=== PATIENT | male | born 1950 | race Caucasian/White ===

== ENCOUNTER 2023-03-23 07:42 | Outpatient (CLI) | payer MEDICARE, OTHER, SELFPAY | END 2023-03-23 07:43 | disposition home or self-care (01) | LOC: AMB 04-11 15:41 | PROVIDERS: Visit Provider Family Medicine | DX: R55 Syncope and collapse (principal); M54.2 Cervicalgia | CPT/HCPCS: A0425; A0429 ==

== ENCOUNTER 2023-03-23 08:15 | Emergency (ER) | payer MEDICARE, OTHER, SELFPAY ==
[2023-03-23] VITALS (13 sets, daily range): BP systolic 117–165; BP diastolic 93–104; PULSE 48–73; RESP 20; TEMP 35.9; O2SAT 92–97; BMI 45.1
--- NOTE | 2023-03-23 08:25 | ED_ITS ---
HPI - Fall General Time Seen by Provider: 08:25 Date Seen: 03/23/23 Chief Complaint: Fall/Minor Trauma Stated Complaint: Neck Pain Time Seen by Provider: 03/23/23 08:25 Source: patient and EMS Mode of arrival: EMS Limitations: no limitations History of Present Illness HPI Narrative: Patient is a 72 year old male brought in by [facility] after a fall at his girlfriend's house where he is staying. He is complaining of toe pain in his foot, neck pain which may be acute on chronic. 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 He is also noting some double vision. He complains of some pain into his right shoulder area. Feels like it is over the right shoulder blade. He was getting up to go to the bathroom this morning going down a hallway to use the bathroom he usually uses at his girlfriend's house. He started to feel dizzy, maybe a sense of lightheadedness and imbalance together but not spinning. He went down, no loss of consciousness. He was just at [facility] yesterday, diagnosed with right lower extremity cellulitis. He had been at a viewing or appreciation for the [employer] at a hotel in [place]. That had a complimentary drink and were going back in to the room, felt dizzy then but was maybe a bit different. He went down there. He was started on Cipro for his right lower extremity cellulitis. He is chronically anticoagulated on Coumadin for atrial fibrillation. He does not have a headache at this time, states he does have some pain above his right eye. Notes no motor weakness or incoordination in any of his extremities. No difficulty breathing, no chest pain or chest wall pain. No abdominal pain. He has not noted any fevers or chills. He has not been coughing or short of breath baseline. 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 He does note that he hit the back of his head last night with his fall. He did report a normal CT scan last night at [facility]. complaint: fall Onset (ago): minute(s) Fall from: standing Fall witnessed: no Place fall occurred: home Loss of consciousness: No Prolonged down time: no Symptoms prior to fall: lightheadedness and dizziness Related Data Home Medications Medication Instructions Recorded Confirmed atenolol 100 mg tablet 100 mg PO DAILY 03/23/23 03/23/23 chlorthalidone 25 mg tablet 25 mg PO DAILY 03/23/23 03/23/23 doxazosin 2 mg tablet 2 mg PO DAILY 03/23/23 03/23/23 lisinopril 40 mg tablet 40 mg PO DAILY 03/23/23 03/23/23 warfarin .ROUTE 03/23/23 Previous Rx's Medication Instructions Recorded cephalexin 500 mg tablet 500 mg PO QID 10 days #40 tabs 03/23/23 Allergies Allergy/AdvReac Type Severity Reaction Status Date / Time bee pollen Allergy Unknown Verified 03/23/23 08:33 zolpidem [From Ambien] Allergy Unknown Verified 03/23/23 08:33 Review of Systems Status of ROS: Reports: 10 or more systems reviewed and unremarkable except as noted in History and below PFSH PFS Social History Smoking Status: Never smoker How often do you have a drink containing alcohol: monthly or less How many standard drinks containing alcohol do you have on a typical day: 1 or 2 How often do you have six or more drinks on one occasion: Never AUDIT-C Alcohol total score: 1 Non-prescribed substance use: marijuana (any form) Non-prescribed substance use details: infrequent marijuana use Exam Const: Vital Signs, click to edit/add: Vital Signs - 24 hr 03/23/23 08:24 03/23/23 08:25 03/23/23 08:26 Temperature 96.7 F L Pulse Rate 67 73 Pulse Rate [Pulse Oximeter] 54 L Respiratory Rate 20 Blood Pressure 137/95 H Blood Pressure [Ri ght Upper Arm] 137/95 H Blood Pressure [or thostatic lying Le ft Arm] Blood Pressure [or thostatic sitting Left Arm] Blood Pressure [or thostatic standing Left Arm] Pulse Oximetry 96 97 94 Oxygen Delivery Me thod Room Air 03/23/23 08:30 03/23/23 08:59 03/23/23 09:00 Temperature Pulse Rate 65 68 61 Pulse Rate [Pulse Oximeter] Respiratory Rate Blood Pressure Blood Pressure [Ri ght Upper Arm] Blood Pressure [or thostatic lying Le ft Arm] Blood Pressure [or thostatic sitting Left Arm] Blood Pressure [or thostatic standing Left Arm] Pulse Oximetry 97 97 96 Oxygen Delivery Me thod 03/23/23 09:15 03/23/23 09:30 03/23/23 09:45 Temperature Pulse Rate 58 L 48 L 56 L Pulse Rate [Pulse Oximeter] Respiratory Rate Blood Pressure Blood Pressure [Ri ght Upper Arm] Blood Pressure [or thostatic lying Le ft Arm] Blood Pressure [or thostatic sitting Left Arm] Blood Pressure [or thostatic standing Left Arm] Pulse Oximetry 94 92 96 Oxygen Delivery Me thod 03/23/23 10:28 03/23/23 10:30 03/23/23 10:45 Temperature Pulse Rate 69 72 65 Pulse Rate [Pulse Oximeter] Respiratory Rate Blood Pressure Blood Pressure [Ri ght Upper Arm] Blood Pressure [or thostatic lying Le ft Arm] Blood Pressure [or thostatic sitting Left Arm] Blood Pressure [or thostatic standing Left Arm] Pulse Oximetry 97 95 95 Oxygen Delivery Me thod 03/23/23 11:40 Temperature Pulse Rate Pulse Rate [Pulse Oximeter] Respiratory Rate Blood Pressure Blood Pressure [Ri ght Upper Arm] Blood Pressure [or thostatic lying Le ft Arm] 162/104 H Blood Pressure [or thostatic sitting Left Arm] 165/101 H Blood Pressure [or thostatic standing Left Arm] 117/93 H Pulse Oximetry Oxygen Delivery Me thod Documenting provider has reviewed patient's vital signs: yes Common normals: no apparent distress, oriented x3, no limitations, healthy appearing, alert and well nourished General appearance: cooperative, comfortable, well kempt and well developed Nutritional appearance: obese HENMT: Common normals: normocephalic, head/scalp atraumatic, hearing grossly normal bilaterally, external ears normal, external nose normal, nasal mucous membranes and turbinates normal, moist oral mucous membranes, oropharynx normal, dentition normal and gingiva normal Head and scalp: normocephalic and atraumatic Face and sinus: normal facial exam Nose: external nose normal and nasal mucous membranes and turbinates normal External ear: external ears normal Mouth: oral and palatal mucosa normal, lip normal and tongue normal Throat: posterior oropharynx normal Eye: Common normals: PERRL, EOMs intact bilaterally, conjunctivae normal and no scleral icterus Conjunctiva: conjunctiva(e) normal Pupil: PERRL Other: See no dysconjugate gaze at this time but EMS noted that his right eye a seemed ?funny?, patient can see all flores of vision but going to min ocular vision on either side makes the double vision go way. He notes double vision on the right lateral gaze. Neck & C-Spine: Common normals: full ROM (No midline tenderness, no paraspinous tenderness but does complain of pain), no lymphadenopathy, supple, no meningeal signs, no JVD and thyroid normal Thyroid: thyroid normal Other: EMS did have him in a C-collar, it was not staying in place an ineffective. Thi s was removed, patient is not altered and will be trusted to minimize any activity until we have a CT scan. Lymph: Lymphatic: no lymphadenopathy noted Chest: Other: On his posterior chest wall in the thoracic area he has an abrasion over the right scapular area that does extend into the central back. No underlying bony tenderness of the back. Resp: Common normals: normal respiratory effort, no retractions, no use of accessory muscles and clear to auscultation bilaterally Auscultation: clear to auscultation bilaterally Cardio: Common normals: no JVD Other: Heart rate is slow enough that it sounds mostly regular with occasional ectopy but do note that he is in atrial fibrillation on the monitor. I hear no murmur, normal S1 and S2. GI: Common normals: Normal to inspection, nondistended, normoactive bowel sounds present, soft to palpation, non-tender, no hepatosplenomegaly and no masses Palpation: soft and no hepatosplenomegaly : Common normals: no CVA tenderness Bladder/kidney exam: no CVA tenderness Back & Pelvis: Common normals: no CVA tenderness, no thoracic nor lumbar tenderness, thoraco-lumbar ROM normal and straight leg raise negative bilaterally Other: Has the abrasions on his upper back as noted above. Extremity: Common normals: normal to inspection and full ROM Other: Has a bandage over the distal beginning 3rd of his right lower extremity, this was opened and can see a marked erythematous area that is outlined erythema. There is a central little wound with some dried blood. It is definitely erythematous but does not feel warm. This could be significant area venous insufficiency versus cellulitis, agree that I would cover with treatment for antibiotics. Has a laceration on the plantar surface at the junction of the 5th toe and metatarsophalangeal joint. It is about 1 cm. There is dried blood. Unclear if this is a new wound this morning. It is not actively bleeding. Neuro: Trudi Coma Scale: document GCS findings Trudi coma scale eye opening: Spontaneous (4) Leoti coma scale verbal response: Orientated (5) Leoti coma scale motor response: Obey commands (6) Leoti coma scale total score: 15 Common normals: oriented x3, CN's II-XII intact bilaterally (Do not note any dysconjugate gaze but does complain of double vision to R), moves all extremities, no focal motor deficits and no sensory deficits noted Sensorium/orientation: alert Meningeal signs: no meningeal signs Speech: speech normal Motor exam: strength 5/5 throughout, no pronator drift, no tremor noted, no asterixis, no fasciculations and muscle tone normal throughout Psych: Appearance: well kempt Course Course Hospital Course: This patient has multiple issues on presentation. First of all, we have the fall with with an anticoagulated patient with hitting his head, neck pain that may be chronic with acute flare. Certainly need to rule out intracranial bleeding as well as cervical trauma. He has no neurologic changes at this time that would suggest a cervical spine compromise. We will still look at a CT cervical spine to rule out fracture. He also is complaining of the lightheadedness/dizziness and double vision. Will need to tried to pinpoint time frame to see if he can tell me exactly when this started or feel awoke with it. This is possibly a cerebrovascular event, could be a small bleed with traumatic changes from the bleed. May need to consider CTA, consultation with Neurology on this one. Will start with his head CT. He will be monitored. If he is therapeutic in his anticoagulation with Coumadin, would not be a lytic candidate. Need to consider infectious etiology given cellulitis. Is not showing us any vital sign changes of sepsis at this time but will continue to be monitored. Reevaluation(s) Time of Reevaluation #1: 09:08 Reevaluation #1: Patient is re-evaluated. He notes the double vision seems to come and go. Had cleared before CT scan but when he went over to CT scan was seeing double. When I re-evaluated him, when he looks upward at a camera light, can see 2, when I have him cover his right eye echoes to 1. When we uncover his right eye he actually sees 1 light, covering the left eye, only sees 1 light. Have reviewed with him that I do not see anything on his head CT but certainly need to await the Radiology over-read. I am going to talk to Stroke Neurology at [facility], want to discuss their thoughts on brain MRI as I have the capacity at this moment. Nursing staff has looked up patient's tetanus status, last tetanus was 11/08/2014. He should be up-to-date for his current injuries. Time of Reevaluation #2: 11:35 Reevaluation #2: Patient is significantly orthostatic. His blood pressure while lying and sitting is in the 160s but when he goes to standing the systolic went to 117. He has had some fluids this morning and an energy bar. Were going to give him 500 mL normal saline, have him eat and drink more and recheck a standing blood pressure. We discussed the imaging including MRI findings. There is no evidence of a stroke. There is possibility of cranial nerve for injury with the double vision. We discussed outpatient follow-up for that which is recommended to see Neurology. He is going to need to see his primary care provider as soon as possible. He has a walker at his apartment in [place], is planning on trying to go home to [place]. He does feel safe staying there. We did discuss the need to start ambulation much slower. He needs to acclimate to a standing position very slowly. Time of Reevaluation #3: 12:49 Reevaluation #3: Patient remained asymptomatic after the IV fluids as far as orthostatic changes. He did also eat and drink. He is not going to get down to [place] today to picker feeder the antibiotics that were sent from [facility] last night. He has requested we send the Keflex to the local [facility] here in [place]. I did send the prescription that they had prescribed to the local [facility] so he will have this. Consultations Consultation #1: Have spoke with Dr. Armenta stroke Neurology at [facility]. We reviewed this case. He agrees with the binocular diplopia that we should proceed with MRI noncontrast brain. There can be small pontine CVA issues, possible cranial nerve 4 injuries from hitting his head. Time: 09:23 Vital Signs Vital signs: Initial Vital Signs Temperature 96.7 F L 03/23/23 08:24 Temperature Source Temporal Artery Scan 03/23/23 08:24 Pulse Rate 54 L 03/23/23 08:24 Respiratory Rate 20 03/23/23 08:24 Blood Pressure 137/95 H 03/23/23 08:24 Blood Pressure Mean 109 H 03/23/23 08:24 Blood Pressure Position Supine 03/23/23 08:24 Pulse Oximetry 96 03/23/23 08:24 Oxygen Delivery Method Room Air 03/23/23 08:24 Vital Signs Temperature 96.7 F L 03/23/23 08:24 Pulse Rate 54 L 03/23/23 08:24 Respiratory Rate 20 03/23/23 08:24 Blood Pressure 137/95 H 03/23/23 08:24 Pulse Oximetry 96 03/23/23 08:24 Oxygen Delivery Method Room Air 03/23/23 08:24 Temperature 96.7 F L 03/23/23 08:24 Pulse Rate 65 03/23/23 10:45 Respiratory Rate 20 03/23/23 08:24 Blood Pressure 162/104 H 03/23/23 11:40 Pulse Oximetry 95 03/23/23 10:45 Oxygen Delivery Method Room Air 03/23/23 08:24 MDM - Fall Differential Diagnosis Differential diagnosis: Likely syncope and concussion without loss of consciousness Lab Data Attestation: I reviewed the patient's lab results. Labs: Lab Results 03/23/23 03/23/23 03/23/23 Range/Units 08:27 08:35 10:36 WBC 7.24 (4.50-11.00) K/uL RBC 4.67 (4.30-5.90) m/uL Hgb 13.8 (13.5-17.5) gm/dL Hct 41.8 (37.0-53.0) % MCV 90 (80-100) fL MCH 30 (26-34) pg MCHC 33 (32-36) gm/dL RDW Coeff of Nnamdi 13.1 (11.5-15.5) % Plt Count 166 (140-440) K/uL Neut % (Auto) 69.1 (42.0-72.0) % Lymph % (Auto) 19.2 L (20-44) % [place] % (Auto) 7.0 (0.0-11.0) % Eos % (Auto) 4.0 (0.0-7.0) % Baso % (Auto) 0.6 (0.0-3.0) % Neut # (Auto) 5.00 (1.7-7.0) K/uL Lymph # (Auto) 1.40 (0.90-2.90) K/uL [place] # (Auto) 0.50 (0.00-0.90) K/UL Eos # (Auto) 0.29 (0.00-0.50) K/uL Baso # (Auto) 0.04 (0.00-0.30) K/uL INR 2.01 H (0.91-1.10) Sodium 135 (135-149) mmol/L Potassium 3.3 L (3.6-5.1) mmol/L Chloride 103 (96-114) mmol/L Carbon Dioxide 21 (20-32) mmol/L BUN 24 (7-30) mg/dL Creatinine 0.9 (0.5-1.5) mg/dL Estimated Creat Clear 68.94 Estimated GFR 91 ml/min Glucose 168 H (60-115) mg/dL Lactate 1.9 (0.5-1.9) mmol/L Calcium 8.4 (8.4-10.6) mg/dL Total Bilirubin 2.1 H (0.1-1.5) mg/dL AST 27 (12-35) U/L ALT 23 (4-50) U/L Alkaline Phosphatase 42 (40-150) U/L C-Reactive Protein 1.2 H (0.5-1.0) mg/dL Total Protein 6.9 (6.0-8.3) g/dL Albumin 3.9 (3.3-5.0) g/dL POC Troponin I 0.01 0.01 (0.01-0.04) ng/ml Imaging Data CT scan - head: Attestation: I have reviewed the pertinent imaging results. Radiologist's impression: Patient: JENNIFER ARNOLD Facility:?[facility] Patient ID:?[id number] Site Patient ID:?[id number] Site :?[id number] Study:?CT Head W/O-03/23/2023 9:07:35 AM Ordering Physician:?Genie Townsend Final Report: INDICATION: FALL C/O DOUBLE VISION RIGHT EYE ON COUMADIN HIT HEAD AND NECK PAIN TECHNIQUE: CT of the head without contrast. Coronal and sagittal reformats. Bone and soft tissue algorithms. COMPARISON: No prior studies available for comparison at this institution. FINDINGS: No acute intracranial hemorrhage or extraaxial collection. No evidence of acute cortical infarction. No mass effect or midline shift. Mild generalized cerebral and cerebellar parenchymal volume loss. Incidental note is made of a hyperdense extra-axial collection along the left middle cranial fossa most compatible with arachnoid cyst. Mild regions of decreased attenuation within the periventricular and subcortical white matter of both cerebral hemispheres most likely reflects chronic microvascular ischemic disease and age related change in this patient. Vascular calcifications within the carotid siphons. Orbital contents are normal. No calvarial fractures. No lytic or sclerotic osseous lesions within the calvarium or skull base. Scalp and other imaged soft tissue structures are normal. Mastoid air cells are clear. There is a 1.1 centimeter lucency in the left frontal bone abutting the frontal sinus that contains a few calcifications and is likely arrested pneumatization of the frontal sinus. Incidental osteoma in the left frontal sinus. Incidental subgaleal lipoma along the left frontal scalp. IMPRESSION: 1. No acute intracranial abnormalities. 2. Mild parenchymal volume loss and chronic small vessel ischemic changes. 3. Incidental arachnoid cyst along the left middle cranial fossa. Please note that all CT scans at this facility use dose modulation, iterative reconstruction, and/or weight-based dosing when appropriate to reduce radiation dose to as low as reasonably achievable. Dictated by Juan Francisco Botello MD @ 03/23/2023 9:22:35 AM (Electronic Signature) CT cervical spine: Attestation: I have reviewed the pertinent imaging results. Radiologist's impression: Patient: JENNIFER ARNOLD Facility:?[facility] Patient ID:?[id number] Site Patient ID:?[id number] Site :?[id number] Study:?CT Spine Cervical W/O-03/23/2023 9:06:47 AM Ordering Physician:Jaylin Townsend Final Report: Indication: FALL NECK PAIN Technique: Noncontrast axial CT of the cervical spine with coronal and sagittal reformats are provided. Comparison: No prior studies available for comparison at this institution. Findings: There is reversal of normal cervical lordosis. Multilevel cervical spondylosis. Advanced degenerative changes in the anterior atlantoaxial articulation. Severe disc height loss at C5-6, C6-7 and moderate interspace narrowing at C7-T1. Grade 1 anterolisthesis at C7-T1. No compression fracture. No acute osseous abnormality. No prevertebral or paraspinal edema. C1-2: No spinal canal stenosis C2-3: Advanced left facet arthrosis. Mild left neural foramina narrowing. No right neural foramina narrowing. No significant spinal canal stenosis. C3-4: Moderate facet arthrosis. No significant spinal canal stenosis or neural foramen narrowing. C4-5: Advanced left and moderate right facet arthrosis. Uncovertebral joint hypertrophy. Moderate left and mild right neural foramen narrowing. No significant spinal canal stenosis C5-6: Disc osteophyte complex and uncovertebral joint hypertrophy. Moderate spinal canal stenosis. Severe left and moderate right neural foramen narrowing. Moderate bilateral facet arthropathy. C6-7: Disc osteophyte complex results in moderate-severe spinal canal stenosis. Severe neural foramina narrowing bilaterally due to uncovertebral joint hypertrophy. C7-T1: Grade 1 anterolisthesis. Advanced facet arthrosis. Moderate bilateral neural foramina narrowing. Mild spinal canal stenosis. Impression: 1. No acute osseous abnormality. Reversal of normal cervical lordosis. Examination is limited due to quantum mottling artifact. 2. Moderate-severe spinal canal stenosis at C6-7 and moderate spinal canal stenosis at C5-6. 3. Severe left and moderate right neural foramina narrowing at C5-6, severe bilateral neural foramen narrowing at C6-7 and moderate neural foramina narrowing at C7-T1. Moderate left neural foramen narrowing at C4-5. Please note that all CT scans at this facility use dose modulation, iterative reconstruction, and/or weight-based dosing when appropriate to reduce radiation dose to as low as reasonably achievable. Dictated by Juan Francisco Botello MD @ 03/23/2023 9:32:22 AM (Electronic Signature) MR Brain: Attestation: I have reviewed the pertinent imaging results. Radiologist's impression: Patient: JENNIFER ARNOLD Facility:?[facility] Patient ID:?[id number] Site Patient ID:?[id number]. Site :?1950 Study:?MRI Head WO-03/23/2023 10:26:06 AM Ordering Physician:?Genie Rizzoce Final Report: Indication: Binocular diplopia Technique: Noncontrast sagittal T1 weighted, axial T2 fast spin echo, FLAIR, and diffusion weighted images of the head. Comparison: CT 03/23/2023 Findings: Mild scattered patchy foci of increased T2 signal within the periventricular and subcortical white matter of both cerebral hemispheres. Mild cerebral parenchymal volume loss. The ventricles, sulci and gyri are of normal size, shape and contour for age and degree of atrophy. Incidental arachnoid cyst along the left middle cranial fossa without significant mass effect on the temporal pole. No re gions of restricted diffusion. Midline structures are centrally located. No convincing evidence of suspicious intra- or extra-axial fluid collections. Mild right parietal scalp subgaleal swelling may be posttraumatic. Incidental subgaleal lipoma along the left frontal scalp. Small retention cyst in the left frontal sinus. Impression: 1. No radiographic evidence of acute intracranial abnormalities. 2. Mild supratentorial white matter changes are non-specific but most likely related to small vessel ischemic disease. Mild cerebral volume loss. 3. Mild right parietal scalp subgaleal swelling may be posttraumatic. 4. Incidental left middle cranial fossa arachnoid cyst. Dictated by Juan Francisco Botello MD @ 03/23/2023 10:40:09 AM (Electronic Signature) ECG Data Attestation: I personally reviewed and interpreted this ECG as follows: (Atrial fibrillation with bradycardia at 57 beats per minute. No acute ischemic change or infarct noted.) ECG interpretation date: 03/23/23 ECG interpretation time: 08:44 Prior ECG tracings: not available for review Discharge Plan Discharge Clinical Impression: Orthostatic hypotension, Chronic anticoagulation, Fall Patient Disposition: Home, Self-Care Condition: Improved Instructions: Fall Prevention for Older Adults (ED), Hypotension (ED) Additional Instructions: I have sent the prescription that you received from [facility] last night to the local [facility] for you. I would drink an extra glass of fluids in the morning before getting up and moving about. I also recommend that you use your walker as much as you are able to. You need to make position changes very slowly. You need to stand and acclimate for at least a few minutes before attempting to walk. You did exhibit orthostatic hypotension here in the ER which corrected with a small amount of IV fluids as well as eating and drinking. Schedule a follow-up with your primary care provider within the next week. I have made no changes to the diagnosis of cellulitis of your right lower extremity which was diagnosed last night at [facility]. Continue to follow their discharge instructions for this diagnosis. Activity Level: Use Walker Prescriptions: New cephalexin 500 mg tablet 500 mg PO QID 10 Days Qty: 40 0RF No Action chlorthalidone 25 mg tablet 25 mg PO DAILY doxazosin 2 mg tablet 2 mg PO DAILY atenolol 100 mg tablet 100 mg PO DAILY lisinopril 40 mg tablet 40 mg PO DAILY warfarin .ROUTE Patient Comments: 7.5 mg MWF, 5mg other days Stand Alone Forms: [employer] Info Instructions
[2023-03-23 08:42] LABS: Lactate* 1.9 mmol/L (0.5-1.9)
[2023-03-23 08:45] LABS: Basophils Absolute Auto 0.04 K/uL (0.00-0.30); Basophils Percent Auto 0.6 % (0.0-3.0); Eosinophils Absolute Auto 0.29 K/uL (0.00-0.50); Hematocrit 41.8 % (37.0-53.0); Hemoglobin* 13.8 gm/dL (13.5-17.5); Immature Granulocytes Abs Auto 0.01 K/uL (0.00-0.30); Immature Granulocytes Pct Auto 0.1 %; Lymphocytes Percent Auto 19.2 % (20-44); Mean Corpuscular HGB Conc 33 gm/dL (32-36); Mean Corpuscular Hemoglobin 30 pg (26-34); Mean Corpuscular Volume 90 fL (80-100); Neutrophils Percent Auto 69.1 % (42.0-72.0); Platelet Count* 166 K/uL (140-440); RDW Coefficient of Variation % 13.1 % (11.5-15.5); Red Blood Count 4.67 m/uL (4.30-5.90); White Blood Count* 7.24 K/uL (4.50-11.00)
[2023-03-23 08:49] LABS: Slide Review Reflex No
[2023-03-23 08:54] LABS: Troponin, Point-of-Care* 0.01 ng/ml (0.01-0.04)
[2023-03-23 08:57] LABS: Chloride* 103 mmol/L (96-114)
[2023-03-23 08:58] LABS: Albumin* 3.9 g/dL (3.3-5.0); Potassium* 3.3 mmol/L (3.6-5.1); Sodium* 135 mmol/L (135-149)
[2023-03-23 09:00] LABS: Creatinine* 0.9 mg/dL (0.5-1.5); Est. Creatinine Clearance* 68.94; Estimated Glomerular Filt Rate 91 ml/min
[2023-03-23 09:01] LABS: Alanine Aminotransferase* 23 U/L (4-50); Alkaline Phosphatase* 42 U/L (40-150); Aspartate Amino Transferase* 27 U/L (12-35); Bilirubin Total* 2.1 mg/dL (0.1-1.5); Blood Urea Nitrogen* 24 mg/dL (7-30); Carbon Dioxide* 21 mmol/L (20-32); Glucose* 168 mg/dL (60-115); Total Protein* 6.9 g/dL (6.0-8.3)
[2023-03-23 09:02] LABS: Calcium* 8.4 mg/dL (8.4-10.6)
[2023-03-23 09:04] LABS: C Reactive Protein* 1.2 mg/dL (0.5-1.0)
[2023-03-23 09:13] LABS: INR 2.01 (0.91-1.10); Prothrombin Time 23.8 Seconds
--- NOTE | 2023-03-23 09:34 | CRLHL7_ITS ---
For Patients: As a result of the Century Cures Act, medical imaging exams and procedure reports are released immediately into your electronic medical record. You may view this report before your referring provider. If you have questions, please contact your health care provider. Indication: Binocular diplopia Technique: Noncontrast sagittal T1 weighted, axial T2 fast spin echo, FLAIR, and diffusion weighted images of the head. Comparison: CT 03/23/2023 Findings: Mild scattered patchy foci of increased T2 signal within the periventricular and subcortical white matter of both cerebral hemispheres. Mild cerebral parenchymal volume loss. The ventricles, sulci and gyri are of normal size, shape and contour for age and degree of atrophy. Incidental arachnoid cyst along the left middle cranial fossa without significant mass effect on the temporal pole. No regions of restricted diffusion. Midline structures are centrally located. No convincing evidence of suspicious intra- or extra-axial fluid collections. Mild right parietal scalp subgaleal swelling may be posttraumatic. Incidental subgaleal lipoma along the left frontal scalp. Small retention cyst in the left frontal sinus. Impression: 1. No radiographic evidence of acute intracranial abnormalities. 2. Mild supratentorial white matter changes are non-specific but most likely related to small vessel ischemic disease. Mild cerebral volume loss. 3. Mild right parietal scalp subgaleal swelling may be posttraumatic. 4. Incidental left middle cranial fossa arachnoid cyst. Dictated by Juan Francisco Botello MD @ 03/23/2023 10:40:09 AM (Electronically Signed)
[2023-03-23 11:15] LABS: Troponin, Point-of-Care* 0.01 ng/ml (0.01-0.04)
[2023-03-23] MEDS: 0.9 % SODIUM CHLORIDE 500 ML 500 ML IV (11:51)
--- NOTE | 2023-03-23 12:33 | ED.NURSE ---
Patient had fluid bolus and eat/drink for lunch. Recheck of orthostatics remained unchanged with sitting to standing. Sitting 133/90, Standing 135/100
== END 2023-03-23 13:09 | disposition home or self-care (01) ==
PROVIDERS: Emergency Provider Family Medicine
DX: I95.1 Orthostatic hypotension (principal); Z79.01 Long term (current) use of anticoagulants; W19.XXXA Unspecified fall, initial encounter
CPT/HCPCS: 36415; 70450; 70551; 72125; 80053; 83605; 84484; 85025; 85610; 86140; 93005; 94761; 99284; 99285; J7120